=== PATIENT | female | born 1975 | race Caucasian/White ===

== ENCOUNTER → 2018-09-15 | Outpatient (CLI) | payer BC ==
--- NOTE | 2018-09-16 10:42 | MM ---
Reason for exam: screening (asymptomatic). Baseline mammogram. Physical Findings: Nurse Summary: 0.5cm nodule in the right breast at 9 o'clock (nurse mj). MG 3D Screening Mammo W/Cad Bilateral CC and MLO view(s) were taken. The breast tissue is extremely dense which could obscure a lesion on mammography. 9 o'clock palpable marker on the right. Suggestion of underlying nodularity medial centrally right breast and a couple areas left centrally and upper outer quadrant. These results were verbally communicated with the patient and result sheet given to the patient on 09/15/18. ASSESSMENT: Incomplete: need additional imaging evaluation, BI-RAD 0 RECOMMENDATION: Ultrasound of both breasts. [facility] will attempt to contact patient to return for ultrasound.
--- NOTE | 2018-09-16 10:46 | USB ---
Reason for exam: additional evaluation requested from abnormal screening. Physical Findings: Breast exam preformed at baseline screening. US Breast Workup Limited AYSE Right complete breast ultrasound includes all four quadrants, the retroareolar region and axilla. Finding demonstrates a 0.9 x 0.4 x 1.1cm mixed lesion at 3 o'clock, a 0.9 x 0.5 x 0.7cm mixed lesion at 9 o'clock palpable, 6 month follow up recommended and a 1.0 x 0.5 x 0.8cm mixed lesion at 10 o'clock. Left limited breast ultrasound including focal area of concern, retroareolar and axilla demonstrates a 0.8 x 0.4 x 0.6cm hypoechoic lesion at 3 o'clock, 6 month follow up recommended, a 1.3 x 0.6 x 1.4cm mixed lesion at 4 o'clock and a 1.0 x 0.4 x 0.8cm mixed lesion at 4 o'clock. All of these mixed lesions likely represent cyst clusters or cysts with varying degrees of complication with debris. These results were verbally communicated with the patient and result sheet given to the patient on 09/15/18. ASSESSMENT: Probably benign, BI-RAD 3 RECOMMENDATION: Ultrasound of both breasts in 6 months.
== END ==
LOC: RADMAMWWP 15:40
PROVIDERS: ATTEND Obstetrics & Gynecology Obstetrics
DX: Z12.31 Encounter for screening mammogram for malignant neoplasm of breast (principal); R92.8 Other abnormal and inconclusive findings on diagnostic imaging of breast
CPT/HCPCS: 77063; 77067